=== PATIENT | male | born 2005 | race Caucasian/White ===

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

== ENCOUNTER 2024-03-06 11:37 | Outpatient (REF) | payer OTHER, MEDICAID, SELFPAY ==
[2024-03-06 14:21] LABS: MANUAL DIFF FLAG NO
[2024-03-06 14:27] LABS: Basophils Absolute Auto 0.1 X10*3/uL (0.0-0.2); Basophils Percent Auto 1.4 % (0-2); Eosinophils Absolute Auto 0.2 X10*3/uL (0.0-0.4); Eosinophils Percent Auto 4.2 % (0-4); Hematocrit 44.3 % (42.0-52.0); Hemoglobin 14.7 g/dl (14.0-18.0); Imm Gran Abs Auto 0.01 X10*3/uL (0.00-0.03); Imm Gran Pct Auto 0.2 % (0.0-0.4); Lymphocytes Absolute Auto 1.9 X10*3/uL (1.2-4.9); Lymphocytes Percent Auto 38.6 % (20-40); Mean Corpuscular HGB Conc 33.2 g/dl (31.0-36.0); Mean Corpuscular Hemoglobin 28.8 pg (27.0-33.0); Mean Corpuscular Volume 86.9 fL (80.0-98.0); Mean Platelet Volume 9.8 fL (9.4-12.4); Monocytes Absolute Auto 0.5 X10*3/uL (0.1-1.2); Monocytes Percent Auto 10.3 % (2-11); Neutrophils Absolute Auto 2.3 x10*3/uL (2.0-8.3); Neutrophils Percent Auto 45.3 % (45-73); Platelet Count 319 X10*3/uL (160-400); Red Cell Distribution Width 12.4 % (11.0-16.0)
[2024-03-06 14:39] LABS: Estimated Average Glucose 97 mg/dL
[2024-03-06 14:59] LABS: Alanine Aminotransferase 30 U/L (0-40); Albumin Level 4.5 g/dL (3.5-5.0); Alkaline Phosphatase 80 U/L (39-117); Anion Gap 11 (12-20); Aspartate Amino Transferase 21 U/L (5-37); Bilirubin Direct 0.3 mg/dL (0.0-0.5); Bilirubin Total 0.9 mg/dL (0.0-1.0); Blood Urea Nitrogen 17 mg/dL (9-16); Calcium 9.7 mg/dL (8.4-10.2); Carbon Dioxide 23 mmol/L (22-29); Chloride 110 mmol/L (96-108); Cholesterol 187 mg/dL (<200); Estimated Glomerular Filt Rate > 60; Glucose Fasting 84 mg/dL (60-99); HDL Cholesterol 37 mg/dL (>40); LDL Cholesterol Calculated 121 mg/dL (<100); Sodium 140 mmol/L (135-145); Total Protein 7.7 g/dL (6.5-8.0); Triglycerides 149 mg/dL (<150)
[2024-03-06 15:02] LABS: TSH reflex Free T4 0.85 uIU/mL (0.32-4.0)
== END 2024-03-06 11:38 | disposition home or self-care (01) ==
LOC: HO.CHCLDS 11:37
PROVIDERS: Visit Provider Pediatrics
DX: Z00.00 Encounter for general adult medical examination without abnormal findings (principal); Z13.89 Encounter for screening for other disorder; Z13.1 Encounter for screening for diabetes mellitus
CPT/HCPCS: 36415; 80048; 80061; 80076; 83036; 84443; 85025

== ENCOUNTER 2025-05-06 13:39 | Outpatient (REF) | payer OTHER, MEDICAID, SELFPAY ==
--- NOTE | ~2025-05-06 | XR_ITS ---
EXAMINATION: XR CHEST 2 VIEWS HISTORY: chest tightness and cough x 2 weeks COMPARISON: There are no prior studies available for comparison. FINDINGS: PA and lateral views of the chest are submitted. The lungs are expanded and clear. There is no pleural effusion, pneumothorax, or pulmonary vascular congestion. The heart is normal in size. The bones are intact. XR/XR chest 2V IMPRESSION: Normal examination of the chest. Electronically signed by: Gonzalo Courtney MD 05/06/2025 01:58 PM EDT
--- OUTSIDE RECORDS SUMMARY | 2025-05-06 13:20 | XMS_ITS | Encounter Summary ---
Author Organization [employer] Address [address] [place] [address] 7 [place] [address] Care Team Providers Care Dryer And Washer Mechanic Name Role Phone Tasia Espinoza MD Primary Care Provider [phone] Reason for Visit * Reason Comments Asthma Encounter Details Date Type Department Care Team ([facility] st Contact Info) Description 05/06/2025 1:20 PM EDT Office Visit [facility] [address] [id number] Mild persistent asthma with acute exacerbation (Primary Dx); Mild asthma with allergic rhinitis with acute exacerbation, unspecified whether persistent Social History Tobacco Use Types Packs/Day Years Used Date Smoking Tobacco: Never Passive Smoke Exposure: Never Smokeless Tobacco: Never Alcohol Answer Date Recorded Frequency of Alcohol Consumption Not on file 03/06/2024 Average Number of Drinks Not on file 024 Frequency of Binge Drinking Not on file 02/08 Score 0 03/06/2024 Depression Answer Date Recorded Patient Health Questionnaire-9 Score 8 03/06/2024 Patient Health Questionnaire-9 Score 8 03/06/2024 Last PHQ-9: Questionnaire Data Not on file 0 03/06/2024 Housing Stability Answer Date Recorded What is your housing situation today? I have eusebia tavarez 02/25/[address] you li ve. Do you have problems with any of the following? None of the above 02/25/2024 Food Insecurity Answer Date Recorded Within the past 12 months, y ou worried that your food would run out before you got money to buy more: Never True 02/25/2024 Within the past 12 months,th e food you bought just didn't last and you didn't have enough money to get more: Never True Transportation Answer Date Recorded In the past 12 months, has l ack of transportation kept you from medical appts, meetings, work or from getting things needed for daily living? No 02/25/2024 Utilities Answer Date Recorded In the past 12 months, has t he electric, gas, oil or water company threatened to shut off services in your home? No 02/25/2024 Depression Answer Date Recorded Patient Health Questionnaire-2 Score 0 03/06/2024 Internet Access Answer Date Recorded Internet Access Q1 Yes 05/11/2024 Internet Access Q2 Not on file 05/11/2024 Sex and Gender Information Value Date Recorded Sex Assigned at Male 07/09/2022 10:18 AM EDT Legal Sex Male 10:18 AM EDT Gender Identity Male 07/09/2022 10:18 AM EDT Sexual Orientation Choose not to disclose 2021 10:18 AM EDT documented as of this encounter Last Filed Vital Signs Vital Sign Reading Time Taken Comments Blood Pressure 139/77 05/06/2025 1:04 PM EDT Pulse 83 05/06/2025 1:04 PM EDT Temperature 36.4 C (97.6 F) 05/06/2025 1:04 PM EDT Respiratory Rate 17 05/06/2025 1:04 PM EDT Oxygen Saturation 97% 05/06/2025 1:04 PM EDT Inhaled Oxygen Concentration - - Weight 123 kg (271 lb 12.8 oz) 05/06/2025 1:04 P M EDT Height - - Body Mass Index 33.97 03/06/2024 11:10 AM EDT documented in this encounter Plan of Treatment Upcoming Encounters Date Type Department Care Team (Late st Contact Info) Description 05/19/2025 9:15 AM EDT Office Visit [facility] MED & PEDS [address] [place] [address] Tasia Espinoza MD [address] [place] [address] documented as of this encounter Procedures Procedure Name Priority Date/Time Associated Diagnosis Comments XR CHEST 2 VIEWS STAT 05/06/2025 1:04 PM EDT Mild persistent asthma with acute exacerbation documented in this encounter Results * XR Chest 2 Views (05/06/2025 1:04 PM EDT) Anatomical Region Laterality Modality Chest Radiographic Lyn ging 05/06/2025 1:04 PM EDT Narrative 05/06/2025 2:01 PM EDT [address] [address] XRay Report Signed Patient: Augie Marquez MR#: [id number] 1 : 2005 Acct:[id number] Age/Sex: 20 / M ADM Date: 05/06/25 Loc: [facility] Attending Dr: Kira Gomez DO Ordering Physician: Kira Gomez DO Date of Service: 05/06/25 Procedure(s): XR chest 2V Accession Number(s): [id number] cc: Kira Gomez DO EXAMINATION: XR CHEST 2 VIEWS HISTORY: chest tightness and cough x 2 weeks COMPARISON: There are no prior studies available for comparison. FINDINGS: PA and lateral views of the chest are submitted. The lungs are expanded and clear. There is no pleural effusion, pneumothorax, or pulmonary vascular congestion. The heart is normal in size. The bones are intact. XR/XR chest 2V IMPRESSION: Normal examination of the chest. Electronically signed by: Gonzalo Courntey MD 05/06/2025 01:58 PM EDT Dictated By: Gonzalo Courtney MD Signed By: <Electronically signed by Gonzalo Courtney MD in OV> 05/06/25 1358 DD/ 1304 TD/TT: 05/06/25 1315 Licensed Clinician: Procedure Note Donotuseinterpreter, Image - 05/06/[address] [address] XRay Report Signed Patient: Augie MarquezMR#: [id number] 1 : 2005Acct:[id number] Age/Sex: 20 / MADM Date: 05/06/25 Loc: [facility] Attending Dr: Kira Gomez DO Ordering Physician: Kira Gomez DO Date of Service: 05/06/25 Procedure(s): XR chest 2V Accession Number(s): [id number] cc: Kira Gomez DO EXAMINATION: XR CHEST 2 VIEWS HISTORY: chest tightness and cough x 2 weeks COMPARISON: There are no prior studies available for comparison. FINDINGS: PA and lateral views of the chest are submitted. The lungs are expanded and clear. There is no pleural effusion, pneumothorax, or pulmonary vascular congestion. The heart is normal in size. The bones are intact. XR/XR chest 2V IMPRESSION: Normal examination of the chest. Electronically signed by: Gonzalo Courtney MD 05/06/2025 01:58 PM EDT RP Dictated By: Gonzalo Courtney MD Signed By: <Electronically signed by Gonzalo Courtney MD in OV> 05/06/25 1358 DD/ 1304 TD/TT: 05/06/25 1315 Licensed Clinician: Kira Gomez DO IMG XR PROCEDURES Final Resu lt documented in this encounter Visit Diagnoses Diagnosis Mild persistent asthma with acute exacerbation- Primary Mild asthma with allergic rhinitis with acute exacerbation, unspecified whether persistent documented in this encounter Additional Health Concerns Assessment Noted Time PHQ-9 Depression Total Score: 8 03/06/20 24 11:13 AM EDT documented as of this encounter Care Teams Dryer And Washer Mechanic Relationship Specialty Start Date End Date Tasia Espinoza MD [address] [place] [address] PCP - General Family Medicine 09/09/18 documented as of this encounter
--- OUTSIDE RECORDS SUMMARY | 2025-05-06 14:23 | XMS_ITS | Encounter Summary ---
Author Organization [employer] Address [address] [place] [address] Care Team Providers Care Parts Cleaner Name Role Phone Tasia Espinoza MD Primary Care Provider [phone] Reason for Visit * Reason Onset Date Comments Nurse Triage 01/16/2024 Encounter Details Date Type Department Care Team ([facility] st Contact Info) Description 01/16/2024 Telephone [facility] [address] [place] [address] Tasia Espinoza MD [address] [place] [address] Nurse Triage Social History Tobacco Use Types Packs/Day Years Used Date Smoking Tobacco: Never Passive Smoke Exposure: Never Smokeless Tobacco: Never Depression Answer Date Recorded Patient Health Questionnaire-9 Score 0 12/26/2022 Housing Stability Answer Date Recorded What is your housing situation today? I have eusebia tavarez 07/04/[address] you li ve. Do you have problems with any of the following? None of the above 07/04/2023 Food Insecurity Answer Date Recorded Within the past 12 months, y ou worried that your food would run out before you got money to buy more: Never True 07/04/2023 Within the past 12 months,th e food you bought just didn't last and you didn't have enough money to get more: Never True Transportation Answer Date Recorded In the past 12 months, has l ack of transportation kept you from medical appts, meetings, work or from getting things needed for daily living? No 07/04/2023 Utilities Answer Date Recorded In the past 12 months, has t he electric, gas, oil or water company threatened to shut off services in your home? No 07/04/2023 Depression Answer Date Recorded Patient Health Questionnaire-2 Score 0 12/26/2022 Sex and Gender Information Value Date Recorded Sex Assigned at Male 07/09/2022 10:18 AM EDT Legal Sex Male 10:18 AM EDT Gender Identity Male 07/09/2022 10:18 AM EDT Sexual Orientation Choose not to disclose 2021 10:18 AM EDT documented as of this encounter Miscellaneous Notes * Telephone Encounter - Cheli Xiong RN - 01/16/2024 9:33 AM EDT Mother calling for pt. Pt. In background gave verbal consent to talk with Mother. Mother stating every year pt. Has allergies at this time and it also triggers Asthma sx. Pt. Not wheezing but has been having itchy watery eyes, itchy eyelids, slight SOB, sneezing. Mother looking for refills on allergy medications and needs refill on Inhaler. FU on allergies appt. Made for 01/27/23 at 1115am with PCP but, needs refills prior to appt. Will submit request to provider in [facility] as PCP not working today. * Telephone Encounter - Zack Edwards - 01/16/2024 9:29 AM EDT Symptom: Wheezing Outcome: Schedule an urgent appointment (within 1 hour) or talk to a nurse or provider soon Reason: Started within the past 3 days The caller accepted this outcome documented in this encounter Plan of Treatment Upcoming Encounters Date Type Department Care Team (Late st Contact Info) Description 05/19/2025 9:15 AM EDT Office Visit [facility] MED & PEDS [address] [place], [place] [phone] Tasia Espinoza MD [address] [place] [address] documented as of this encounter Visit Diagnoses Not on filedocumented in this encounter Additional Health Concerns Assessment Noted Time PHQ-9 Depression Total Score: 0 12/27/19 23 9:36 AM EDT documented as of this encounter Care Teams Parts Cleaner Relationship Specialty Start Date End Date Tasia Espinoza MD [address] [place] [address] PCP - General Family Medicine 09/09/18 documented as of this encounter
--- OUTSIDE RECORDS SUMMARY | 2025-05-06 14:23 | XMS_ITS | Encounter Summary ---
Author Organization [employer] Address [address] [place] [address] Care Team Providers Care Dock Operations Supervisor Name Role Phone Tasia Espinoza MD Primary Care Provider [phone] Reason for Visit * Reason Onset Date Comments Referral 03/18/2023 Bridge Expert Encounter Details Date Type Department Care Team ([facility] Contact Info) Description 03/18/2023 Telephone [facility] [address] [place], [place] [phone] Tasia Espinoza MD [address] [place] [address] Referral (Bridge Expert ) Social History Tobacco Use Types Packs/Day Years Used Date Smoking Tobacco: Never Passive Smoke Exposure: Never Smokeless Tobacco: Never Depression Answer Date Recorded Patient Health Questionnaire-9 Score 0 12/26/2022 Depression Answer Date Recorded Patient Health Questionnaire-2 Score 0 12/26/2022 Sex and Gender Information Value Date Recorded Sex Assigned at Male 07/09/2022 10:18 AM EDT Legal Sex Male 10:18 AM EDT Gender Identity Male 07/09/2022 10:18 AM EDT Sexual Orientation Choose not to disclose 2021 10:18 AM EDT documented as of this encounter Miscellaneous Notes * Telephone Encounter - Lisa Devries - 03/18/2023 9:14 AM EDT Tc from patient requesting status for caterpillar tractor operator referral from 12/26/22. Nurse Prn see's note from01/07/23 stating Referral was sent back from eye and Lasik they stated not seeing new pt's for routine eye exams. Provider was messaged. . documented in this encounter Plan of Treatment Upcoming Encounters Date Type Department Care Team ([facility] st Contact Info) Description 05/19/2025 9:15 AM EDT Office Visit [facility] MED & PEDS [address] [place] [address] Tasia Espinoza MD [address] [place] [address] documented as of this encounter Visit Diagnoses Not on filedocumented in this encounter Additional Health Concerns Assessment Noted Time PHQ-9 Depression Total Score: 0 12/27/19 23 9:36 AM EDT documented as of this encounter Care Teams Dock Operations Supervisor Relationship Specialty Start Date End Date Tasia Espinoza MD [address] [place] [address] PCP - General Family Medicine 09/09/18 documented as of this encounter
--- OUTSIDE RECORDS SUMMARY | 2025-05-06 14:23 | XMS_ITS | Clinical Summary ---
Author Organization [facility] Address [address] [place] [address] Phone Care Team Providers Care Regulatory Compliance Officer Name Role Phone Physician, Pcp Unknown Primary Care Provider Eladia vailable Allergies No known active allergies Medications albuterol 2.5 mg /3 mL (0.083 %) nebulizer solution Take 3 mL (2.5 mg total) by nebulization every 4 (four) hours if needed for wheezing or shortness of breath. 1 Active Social History Tobacco Use Types Packs/Day Years Used Date Smoking Tobacco: Never Assessed Sex and Gender Information Value Date Recorded Sex Assigned at Not on file Legal Sex Male 4:33 AM EST Gender Identity Not on file Sexual Orientation Not on file Obstetrics History Last Filed Vital Signs Vital Sign Reading Time Taken Comments Blood Pressure 131/111 07/15/2024 5:09 PM EST Pulse 115 07/15/2024 5:09 PM EST Temperature 37 C (98.6 F) 07/15/2024 5:09 PM EST Respiratory Rate 18 07/15/2024 5:09 PM EST Oxygen Saturation 98% 07/15/2024 5:09 PM EST Inhaled Oxygen Concentration - - Weight 113 kg (250 lb) 07/15/2024 5:09 PM EST Height 193 cm (6' 4 ) 07/15/2024 5:09 PM EST Body Mass Index 30.43 07/15/2024 5:09 PM EST Plan of Treatment Health Maintenance Due Date Last Done Comments Pneumococcal Vaccine: Pediatrics (0 to 5 Years) and At-Risk Patients (6 to 49 Years) (1 of 1 - PPSV23) 12/31/2009 03/09/2005, 2004, 2004, Additional history exists Meningococcal B Vaccine (1 of 2 - Standard) 2020 HIV Screening 08/12/2022 Hepatitis C Screening 08/12/2022 Social Influencers of Health Screening 08/12/2022 COVID-19 Vaccine (1 - 2023- season) 2024 Depression Screening 09/09/2024 DTaP,Tdap,and Td Vaccines (7 - Td or Tdap) 01/03/2025 01/03/2015, 02/26/2008, 03/09/2005, Additional history exists Annual Well Child Visit (3-21 years old) 03/06/2025 03/06/2024 Influenza Vaccine (#1) 2025 09/26/2012, 2007 Cholesterol Screening (Lipid Panel) 03/06/2029 03/06/2024 HIB Vaccines Completed 03/09/2005, 07/11, 2004, Additional history exists Hepatitis B Vaccines Completed 03/09/2005, 2004, 2004 IPV Vaccines Completed 02/26/2008, 07/11, 2004, Additional history exists MMR Vaccines Completed 02/26/2008, 03/09/2005 Varicella Vaccines Completed 02/26/2008, 03/09/2005 HPV Vaccines Completed 12/21/2016, 12/09, 08/26/2013 Hepatitis A Vaccines Completed 07/28/2019, 12/22/19 17 Meningococcal ACWY Vaccine Completed 11/08/2020, RSV Immunization Patients Under 20 months Aged Out No longer eligible based on patient's age to complete this topic Insurance [place] Care Teams Regulatory Compliance Officer Relationship Specialty Start Date End Date Physician, Pcp Unknown PCP - General 07/16/24
--- OUTSIDE RECORDS SUMMARY | 2025-05-06 14:23 | XMS_ITS | Encounter Summary ---
Author Organization [employer] Address [address] [place] [address] Care Team Providers Care Stuffed Casing Tier Name Role Phone Tasia Espinoza MD Primary Care Provider [phone] Reason for Visit * Reason Onset Date Comments Appointment Request 12/11/2022 Encounter Details Date Type Department Care Team (Late st Contact Info) Description 12/11/2022 Telephone [facility] MED & PED[facility] [address] [place] [address] Tasia Espinoza MD [address] [place] [address] Appointment Request Social History Tobacco Use Types Packs/Day Years Used Date Smoking Tobacco: Never Assessed Sex and Gender Information Value Date Recorded Sex Assigned at Male 07/09/2022 10:18 AM EDT Legal Sex Male 10:18 AM EDT Gender Identity Male 07/09/2022 10:18 AM EDT Sexual Orientation Choose not to disclose 2021 10:18 AM EDT documented as of this encounter Miscellaneous Notes * Telephone Encounter - Joshroryrozinahenny Thad Hilario - 12/11/2022 9:10 AM EDT Tc from mother requesting physical appt with provider. Stacker Driver tried booking but no available appt was found. Please contact mother at [phone] documented in this encounter Plan of Treatment Upcoming Encounters Date Type Department Care Team (Late st Contact Info) Description 05/19/2025 9:15 AM EDT Office Visit [facility] P[facility] [address] [place] [address] Tasia Espinoza MD [address] [place] [address] documented as of this encounter Visit Diagnoses Not on filedocumented in this encounter Care Teams Stuffed Casing Tier Relationship Specialty Start Date End Date Tasia Espinoza MD [address] [place] [address] PCP - General Family Medicine 09/09/18 documented as of this encounter
--- OUTSIDE RECORDS SUMMARY | 2025-05-06 14:23 | XMS_ITS | Encounter Summary ---
Author Organization [employer] Address [address] [place] [address] 7 [place] [address] Care Team Providers Care Echo Vascular Technologist Name Role Phone Tasia Espinoza MD Primary Care Provider [phone] Encounter Details Date Type Department Care Team (Latest Contact Info) Description 05/06/2025 Travel Social History Tobacco Use Types Packs/Day Years [...] t he electric, gas, oil or water [employer] threatened to shut off services in your [...] AM EDT documented as of this encounter Plan of Treatment Upcoming Encounters Date Type Department Care Team (Late st Contact Info) Description 05/19/2025 9:15 AM EDT Office Visit [facility] MED & PEDS [address] [place] [address] Tasia Espinoza MD [address] [place] [address] documented as of this encounter Visit Diagnoses Not on filedocumented in this encounter Additional Health Concerns Assessment Noted Time PHQ-9 Depression Total Score: 8 03/06/20 24 11:13 AM EDT documented as of this encounter Care Teams Echo Vascular Technologist Relationship Specialty Start Date End Date Tasia Espinoza MD [address] [place] [address] PCP - General Family Medicine 09/09/18 documented as of this encounter
--- OUTSIDE RECORDS SUMMARY | 2025-05-06 14:23 | XMS_ITS | Encounter Summary ---
Author Organization [employer] Address [address] [place] [address] Care Team Providers Care Monument Installer Name Role Phone Tasia Espinoza MD Primary Care Provider [phone] Reason for Visit * Reason Onset Date Comments Reschedule 05/30/2023 Encounter Details Date Type Department Care Team ([facility] Contact Info) Description 05/30/2023 Telephone [facility] [address] [place] [address] Tasia Espinoza MD [address] [place] [address] Reschedule Social History Tobacco Use Types Packs/Day Years [...] encounter Miscellaneous Notes * Telephone Encounter - Georgia Mccauley RN - 05/31/2023 11:43 AM EDT Call to pt. Verified name and and gave verbal consent to speak with mom. Mom requesting to reschedule missed HDF with PCP only. Agrees to visit on 06/13/23 @10:30am. * Telephone Encounter - Nickie Mccauley - 05/30/2023 10:44 AM EDT Tc from mom requestign to r/s 05/22 HDF appointment. Please contact mom at [phone] documented in this encounter Plan of Treatment Upcoming Encounters Date Type Department Care Team ([facility] st Contact Info) Description 05/19/2025 9:15 AM EDT Office Visit [facility] MED & PEDS [address] [place] [address] Tasia Espinoza MD [address] [place] [address] documented as of this encounter Visit Diagnoses Not on filedocumented in this encounter Additional Health Concerns Assessment Noted Time PHQ-9 Depression Total Score: 0 12/27/19 23 9:36 AM EDT documented as of this encounter Care Teams Monument Installer Relationship Specialty Start Date End Date Tasia Espinoza MD [address] [place] [address] PCP - General Family Medicine 09/09/18 documented as of this encounter
--- OUTSIDE RECORDS SUMMARY | 2025-05-06 14:23 | XMS_ITS | Clinical Summary ---
Author Organization 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 10 mL 11 12/27/19 23 Active azelastine (Astelin) 0.1 % nasal spray Administer 1 spray into each nostril 2 times daily. Use in each nostril as directed 30 mL 12 01/20/20 24 Active montelukast (Singulair) 10 MG tabletIndicati ons:Mild asthma with allergic rhinitis with acute exacerbation, unspecified whether persistent TAKE 1 TABLET(10 MG) BY MOUTH DAILY 30 tablet 04/01/20 25 Active predniSONE (Deltasone) 20 MG tablet Take 3 tablets (60 mg) by mouth Once per day for 5 days. 15 tablet 05/06/20 25 2024 Active Advair Diskus 250-50 MCG/ACT aerosol powderIndicati ons:Mild asthma with allergic rhinitis with acute exacerbation, unspecified whether persistent Inhale 1 puff 2 times daily. Rinse mouth and throat after use 60 each 3 05/06/20 25 Active albuterol (2.5 MG/3ML) 0.083% nebulizer solutionIndica tions:Mild asthma with allergic rhinitis with acute exacerbation, unspecified whether persistent Take 3 mL (2.5 mg) by nebulization every 8 (eight) hours if needed for wheezing. 75 mL 2 05/06/20 25 Active albuterol (ProAir HFA) 108 (90 Base) MCG/ACT inhalerIndicat ions:Mild asthma with allergic rhinitis with acute exacerbation, unspecified whether persistent Inhale 2 puffs every 6 (six) hours if needed for wheezing. 18 g 2 05/06/20 25 Active loratadine (Claritin) 10 MG tablet 1 tablet by oral route daily 90 tablet 3 05/06/20 25 Active fluticasone (Flonase) 50 MCG/ACT nasal spray Administer 2 sprays into each nostril Once per day. Shake gently. Before first use, prime pump. After use, clean tip and replace cap. 16 g 3 05/06/20 25 2025 Active loratadine (Claritin) 10 MG tablet 1 tablet by oral route daily 90 tablet 3 01/20/20 24 2024 Discontinued(R eorder (will not trigger notification to Pharmacy)) albuterol (2.5 MG/3ML) 0.083% nebulizer solutionIndica tions:Mild asthma with allergic rhinitis with acute exacerbation, unspecified whether persistent Take 3 mL (2.5 mg) by nebulization every 8 (eight) hours if needed for wheezing. 75 mL 3 12/23/19 25 2024 Discontinued(R eorder (will not trigger notification to Pharmacy)) Advair Diskus 250-50 MCG/ACT aerosol powderIndicati ons:Mild asthma with allergic rhinitis with acute exacerbation, unspecified whether persistent Inhale 1 puff 2 times daily. Rinse mouth and throat after use 60 each 3 12/23/19 25 2024 Discontinued(R eorder (will not trigger notification to Pharmacy)) albuterol (ProAir HFA) 108 (90 Base) MCG/ACT inhalerIndicat ions:Mild asthma with allergic rhinitis with acute exacerbation, unspecified whether persistent Inhale 2 puffs every 6 (six) hours if needed for wheezing. 18 g 2 12/23/19 25 2024 Discontinued(R eorder (will not trigger notification to Pharmacy)) Active Problems Problem Noted Date Diagnosed Date Acute bilateral low back pain 02/08/2023 Assessment & Plan (02/08/2023 3:42 PM EDT): Apply heat on affected area Patient reports he was already refer to PT XRAY ordered today Neck pain 02/08/2023 Assessment & Plan (02/08/2023 3:43 PM EDT): Apply heat on affected area Patient already refer to PT Ibuprofen PRN Flexeril 5mg Q 8hrs patient aware of side effect somnolence Post-traumatic headache 02/08/2023 Assessment & Plan (02/08/2023 3:43 PM EDT): Ibuprofen PRN Maintain hydration F/u with PCP Abnormal liver function tests 12/26/2022 Seasonal allergic rhinitis 12/26/2022 Mild persistent allergic asthma 06/30/2020 Morbid obesity 06/13/2020 Encounters Date Type Department Care Team Description 05/06/2025 1:20 PM EDT Office Visit [facility] [address] [address] Mild persistent asthma with acute exacerbation (Primary Dx); Mild asthma with allergic rhinitis with acute exacerbation, unspecified whether persistent 05/06/2025 Travel 04/01/2025 Refill [facility] [address] [address] Name, MD Rakesh Mild asthma with allergic rhinitis with acute exacerbation, unspecified whether persistent 03/05/2025 Telephone [facility] [address] [place] [phone] Tasia Espinoza MD 03/03/2025 Telephone [facility] [address] [place] [address] [phone] Tasia Espinoza MD from Last 3 Months Immunizations Immunization Administration Dates Next Due DTaP, 5 pertussis antigens 02/26/2008,,2004,05/19,2004 HPV 9-Valent 12/21/2016 HPV, Quadrivalent 01/03/2015,08/26/2013 Hep A, ped/adol, 2 dose 07/28/2019,12/21/2016 Hep B, Adolescent or Pediatric 03/09/2005,2004,2004 Hib (HbOC) 03/09/2005, 4,2004,03/17 IPV 02/26/2008, 4,2004,03/17 Influenza, IIV3, injectable 08/26/2008 Influenza, Split (incl. fortunato fied surface antigen) 09/26/2012 MMR 02/26/2008,03/09/2005 Meningococcal MCV4P [id number]-135 11/08/2020,01/04/20 15 Pneumococcal Conjugate PCV 7 03/09/2005, 2004,2004,03/17 Tdap 01/03/2015 Varicella 02/26/2008,03/09/2005 Social History Tobacco Use Types Packs/Day Years Used Date Smoking Tobacco: Never Passive Smoke Exposure: Never Smokeless Tobacco: Never Tobacco Cessation:Counseling Given: Not Answered Alcohol Answer Date Recorded Frequency of Alcohol [...] not to disclose 2021 10:18 AM EDT Last Filed Vital Signs Vital Sign Reading [...] oz) 05/06/2025 1:04 P M EDT Height 190.5 cm (6' 3 ) 03/06/2024 11:10 AM EDT Body Mass Index 33.97 03/06/2024 11:10 AM EDT Plan of Treatment Upcoming Encounters Date Type Department Care Team (Late st Contact Info) Description 05/19/2025 9:15 AM EDT Office Visit [facility] [address] [place] [address] Tasia Espinoza MD [address] [place] [address] Health Maintenance Due Date Last Done Comments Chlamydia and Gonorrhea Screening 2004 HIV Screening 2004 Disability Screening 2004 Alcohol/Substance Use Screening 2016 Family Planning (PISQ) 12/31/2018 Meningococcal B Vaccine (1 of 2 - Standard) 2020 Hepatitis C Screening 12/31/2021 Pneumococcal Vaccine: Pediatrics (0 to 5 Years) and At-Risk Patients (6 to 49) Years (1 of 2 - PCV) 12/31/2022 03/09/2005, 2004, 2004, Additional history exists COVID-19 Vaccine ( - season) 2024 DTaP/Tdap/Td Vaccines (7 - Td or Tdap) 01/03/2025 01/03/2015, 02/26/2008, 03/09/2005, Additional history exists SDOH Screening 02/24/2025 02/25/2024 Depression Screening 03/06/2025 03/06/2024, 03/06/20 Influenza Vaccine (#1) 2025 09/26/2012, 2007 Tobacco Screening 07/16/2025 07/16/2024 Lipid Panel 03/06/2029 03/06/2024, 0309/2021, 06/09/2020 Zoster Vaccines (1 of 2) 12/31/2053 RSV Patients and Patients Aged 60 years or older (1 - 1-dose 75+ series) 12/31/2078 HIB Vaccines Completed 03/09/2005, 07/11, 2004, Additional history exists Hepatitis B Vaccines Completed 03/09/2005, 2004, 2004 IPV Vaccines Completed 02/26/2008, 07/11, 2004, Additional history exists HPV Vaccines Completed 12/21/2016, 12/09, 08/26/2013 Hepatitis A Vaccines Completed 07/28/2019, 12/22/19 17 Meningococcal Vaccine Completed 11/08/2020, 015 RSV under 20 months Aged Out No longe r eligible based on patient's age to complete this topic Rotavirus Vaccines Aged Out No longer eligible based on patient's age to complete this topic Procedures Procedure Name Priority Date/Time Associated Diagnosis Comments XR CHEST 2 VIEWS STAT 05/06/2025 1:04 PM EDT Mild persistent asthma with acute exacerbation LIPID PANEL, STANDARD Routine 03/06/2024 11:38 AM EDT Routine adult health maintenance from Last 3 Months or Most Recently Relevant to Health Maintenance Results * XR Chest 2 Views (05/06/2025 1:04 PM EDT) Anatomical Region Laterality Modality Chest Radiographic Lyn ging 05/06/2025 1:04 PM EDT Narrative 05/06/2025 2:01 PM EDT [address] [address] XRay Report Signed Patient: Augie Marquez MR#: [id number] 1 : 2005 Acct:[id number] Age/Sex: 20 / M ADM Date: 05/06/25 Loc: [facility] Attending Dr: Kira Gomez DO Ordering Physician: Kira Gomez DO Date of Service: 05/06/25 Procedure(s): XR chest 2V Accession Number(s): [id number] cc: Kira Gomez DO EXAMINATION: XR CHEST [...] 05/06/25 1358 DD/ 1304 TD/TT: 05/06/25 1315 Collections Clerk: Procedure Note Donotuseinterpreter, Image - 05/06/[address] [address] XRay Report Signed Patient: Augie MarquezMR#: [id number] 1 : 2005Acct:[id number] Age/Sex: 20 / MADM Date: 05/06/25 Loc: CX Attending Dr: Kira Gomez DO Ordering Physician: Kira Gomez DO Date of Service: 05/06/25 Procedure(s): XR chest 2V Accession Number(s): [id number] cc: Kira Gomez DO EXAMINATION: XR CHEST [...] 05/06/25 1358 DD/ 1304 TD/TT: 05/06/25 1315 Collections Clerk: Kira Gomez DO IMG XR PROCEDURES Final Resu lt * (ABNORMAL) Lipid Panel, Standard (03/06/2024 11:38 AM EDT) Triglycerides 149 <150 mg/dL [facility] Comment:Desirable Triglyceri de: less than 150 mg/dLBorderline High Triglyceride 150-199 mg/dLHigh Triglyceride: 200-499 mg/dLVery High Triglyceride: greater than or equal to 5OO mg/dL Cholesterol 187 <200 mg/dL [facility] Comment:Desirable Cholestero l: less than 200 mg/dLBorderline High Cholesterol: 200-239 mg/dLHigh Cholesterol: greater than 239 mg/dL LDL Cholesterol Calculated 121(H) <100 mg/dL [facility] Comment:Desirable LDL: less than 100 mg/dLNear Optimal/Above Optimal LDL: 110- 129 mg/dLBorderline High LDL: 130-159 mg/dLHigh LDL: 160-189 mg/dLVery High LDL: greater than or equal to 190 mg/dL HDL Cholesterol 37(L) >40 mg/dL [facility] Comment:Desirable HDL: great er than 40 mg/dL Note: This HDL assay may give artificially low results in patients with liver disease. Blood Venous blood specimen / Unknown 03/06/2024 11:38 AM EDT 03/06/2024 2:15 PM EDT Tasia Espinoza MD LAB BLOOD ORDERABLES Final Re sult [facility] [address] [place] [address] [phone] from Last 3 Months or Most Recently Relevant to Health Maintenance Insurance [address] [place], [place] [address] [facility] Care Teams Steel Engraver Relationship Specialty Start Date End Date Tasia Espinoza MD [address] [place] [phone] PCP - General Family Medicine 09/09/18
== END 2025-05-06 13:40 | disposition home or self-care (01) ==
LOC: HO.HHCX 13:39
PROVIDERS: Visit Provider Family Medicine
DX: J45.31 Mild persistent asthma with (acute) exacerbation (principal)
CPT/HCPCS: 71046

== ENCOUNTER → 2025-05-06 13:40 | Outpatient (BNV) | payer OTHER, MEDICAID, SELFPAY | PROVIDERS: Visit Provider Radiology Diagnostic Radiology | DX: R07.89 Other chest pain (principal); R05.9 Cough, unspecified | CPT/HCPCS: 71046 ==

== ENCOUNTER 2025-07-28 11:09 | Outpatient (REF) | payer OTHER, MEDICAID, SELFPAY ==
--- OUTSIDE RECORDS SUMMARY | 2025-07-28 10:30 | XMS_ITS | Encounter Summary ---
Author Organization [employer] Address [address] [place] [address] 7 [place] [address] Care Team Providers Care Ocean Forwarder Name Role Phone Tasia Espinoza MD Primary Care Provider [phone] Encounter Details Date Type Department Care Team ([facility] st Contact Info) Description 07/28/2025 10:30 AM EST Office Visit [facility] P[facility] [address] [place], [place] [phone] Tasia Espinoza MD [address] [place], [place] [phone] Encounter for immunization (Primary Dx); Preop examination; Dietary counseling; Exercise counseling; Routine adult health maintenance; Mild asthma with allergic rhinitis with acute exacerbation, unspecified whether persistent; Seasonal allergic rhinitis, unspecified trigger; Morbid obesity (CMS/HCC) (HCC) Social History Tobacco Use Types Packs/Day Years [...] Sign Reading Time Taken Comments Blood Pressure 112/70 07/28/2025 10:37 AM EST Pulse 80 07/28/2025 10:37 AM EST Temperature 36.3 C (97.4 F) 07/28/2025 10:37 AM EST Respiratory Rate 20 07/28/2025 10:37 AM EST Oxygen Saturation - - Inhaled Oxygen Concentration - - Weight 127 kg (281 lb) 07/28/2025 10:37 AM EST Height 190.8 cm (6' 3.13 ) 07/28/2025 10:[address] Body Mass Index 35 07/28/2025 10:37 AM EST documented in this encounter Progress Notes * Tasia Espinoza MD - 07/28/2025 10:30 AM EST Subjective Patient ID: Augie Marquez is a 20 y.o. male who presents for preop/PE visit. Augie Marquez, age 20 years Cataract and Vision Impairment History of blunt trauma to the left eye with subsequent decreased vision. Uses glasses but primarily relies on the right eye for vision. Scheduled for cataract surgery on August 19, 2025. Reports that the eye doctor expects vision to improve and even out with the right eye after surgery, but not fully recover. Denies current pain. Asthma History of asthma, reports good control and no recent asthma attacks. Weight and Sugar Intake Reports significant weight loss. Consumes multiple cans of Gianna juice daily, sometimes up to three per day, and 0 sugar soda. Has a long history of high sugar intake. Family history of diabetes. Acne Reports persistent pimples. Has used topical products without improvement. Cannabis Use Reports almost daily marijuana use to help with sleep. Obtains marijuana from a dispensary through a friend. Dental Care Last dental visit was eight months ago. Denies current dental pain. Mood Reports good mood. Denies depression. Review of Systems Constitutional: Negative for activity change, chills, fever and unexpected weight change. Eyes: Positive for visual disturbance. Respiratory: Negative for cough, shortness of breath and wheezing. Cardiovascular: Negative for chest pain, palpitations and leg swelling. Gastrointestinal: Negative for abdominal pain and blood in stool. Endocrine: Negative for polydipsia and polyuria. Genitourinary: Negative for decreased urine volume, difficulty urinating, dysuria and hematuria. Musculoskeletal: Negative for arthralgias and gait problem. Skin: Negative for color change and rash. Neurological: Negative for dizziness and headaches. Hematological: Negative for adenopathy. Psychiatric/Behavioral: Negative for dysphoric mood, hallucinations, sleep disturbance and suicidalideas. The patient is not nervous/anxious. Objective BP 112/70 (BP Location: Left arm, Patient Position: Sitting, BP Cuff Size: Adult) Pulse80 Temp 97.4 ??F (36.3 ??C) (Oral) Resp 20 Ht 6' 3.13 (1.908 m) Wt 281 lb (127 kg) BMI 35.00 kg/m?? Physical Exam Vitals reviewed. Constitutional: General: He is not in acute distress. Appearance: He is obese. HENT: Head: Normocephalic. Right Ear: Tympanic membrane and ear canal normal. Left Ear: Tympanic membrane and ear canal normal. Nose: Nose normal. No congestion. Mouth/Throat: Mouth: Mucous membranes are moist. Pharynx: Oropharynx is clear. Eyes: Extraocular Movements: Extraocular movements intact. Conjunctiva/sclera: Conjunctivae normal. Pupils: Pupils are equal, round, and reactive to light. Cardiovascular: Rate and Rhythm: Normal rate and regular rhythm. Heart sounds: Normal heart sounds. No murmur heard. Pulmonary: Effort: Pulmonary effort is normal. No respiratory distress. Breath sounds: Normal breath sounds. No wheezing or rales. Abdominal: General: Bowel sounds are normal. There is distension. Palpations: Abdomen is soft. There is no mass. Tenderness: There is no abdominal tenderness. There is no guarding. Hernia: No hernia is present. Musculoskeletal: General: Normal range of motion. Cervical back: Normal range of motion. Right lower leg: No edema. Left lower leg: No edema. Skin: Capillary Refill: Capillary refill takes less than 2 seconds. Findings: No rash. Neurological: Mental Status: He is oriented to person, place, and time. Mental status is at baseline. Gait: Gait normal. Deep Tendon Reflexes: Reflexes normal. Psychiatric: Mood and Affect: Mood normal. Behavior: Behavior normal. Thought Content: Thought content normal. Judgment: Judgment normal. Assessment/Plan Diagnoses and all orders for this visit: Dietary counseling: - Excessive intake of sugar-sweetened beverages, specifically Gianna drinks, with daily consumption of 2-3 cans containing 35-51 grams of sugar each. - Recommended reduction of Gianna drink consumption to one can per day. Discussed risks of high sugar intake and encouraged consideration of lower sugar alternatives. Exercise counseling: - Physical activity associated with work and recreational basketball. Encounter for immunization: - Due for tetanus vaccination; last dose was 10 years ago. - Ordered tetanus vaccine. Preop examination: - Scheduled for cataract surgery on August 19, 2025. Preoperative evaluation required. - Will check blood work as part of preoperative assessment. Discussed expected improvement in vision post-surgery. Routine adult health maintenance: - Routine health maintenance addressed, including dental care, mood, and social activity. - Ordered blood work for general health screening. Provided work excuse note for July 28, 2025. Acne: - Acne present, current topical treatments ineffective. - Offered prescription for acne medication. Substance use (cannabis): - Daily cannabis use for relaxation and sleep. - Advised to ensure cannabis is obtained from a clean, reputable source to avoid contamination. Screening for sexually transmitted infections: - Sexually active, risk of sexually transmitted infections discussed. - Ordered urinalysis for gonorrhea and chlamydia. Advised use of condoms. Will notify if results are positive. Encounter for immunization - Basic Metabolic Panel, Fasting; Future - CBC auto differential; Future - Hepatic Function Panel; Future - Hemoglobin A1c; Future - TSH W/Reflex to FT4; Future - Lipid Panel, Standard; Future - HIV-1/2 Antigen and Antibodies, Fourth Generation, with Reflexes; Future - Hepatitis C Antibody with Reflex to HCV, RNA, Quantitative, Real-Time PCR; Future - Chlamydia/N. Gonorrhoeae, PCR, Urine - TDAP VACCINE 7 yrs + Preop examination Comments: Augie is cleared for his low risk opthalmological cataract surgery scheduled next month.Note will be sent to opthal office. Orders: - Basic Metabolic Panel, Fasting; Future - CBC auto differential; Future - Hepatic Function Panel; Future - Hemoglobin A1c; Future - TSH W/Reflex to FT4; Future - Lipid Panel, Standard; Future - HIV-1/2 Antigen and Antibodies, Fourth Generation, with Reflexes; Future - Hepatitis C Antibody with Reflex to HCV, RNA, Quantitative, Real-Time PCR; Future - Chlamydia/N. Gonorrhoeae, PCR, Urine Dietary counseling - Basic Metabolic Panel, Fasting; Future - CBC auto differential; Future - Hepatic Function Panel; Future - Hemoglobin A1c; Future - TSH W/Reflex to FT4; Future - Lipid Panel, Standard; Future - HIV-1/2 Antigen and Antibodies, Fourth Generation, with Reflexes; Future - Hepatitis C Antibody with Reflex to HCV, RNA, Quantitative, Real-Time PCR; Future - Chlamydia/N. Gonorrhoeae, PCR, Urine Exercise counseling - Basic Metabolic Panel, Fasting; Future - CBC auto differential; Future - Hepatic Function Panel; Future - Hemoglobin A1c; Future - TSH W/Reflex to FT4; Future - Lipid Panel, Standard; Future - HIV-1/2 Antigen and Antibodies, Fourth Generation, with Reflexes; Future - Hepatitis C Antibody with Reflex to HCV, RNA, Quantitative, Real-Time PCR; Future - Chlamydia/N. Gonorrhoeae, PCR, Urine Routine adult health maintenance Comments: PE done, IZs Updated today. Declines flu,recieved TD booster. Fasting labs ordered. STI screening tests done, condom use reinforced. Orders: - Basic Metabolic Panel, Fasting; Future - CBC auto differential; Future - Hepatic Function Panel; Future - Hemoglobin A1c; Future - TSH W/Reflex to FT4; Future - Lipid Panel, Standard; Future - HIV-1/2 Antigen and Antibodies, Fourth Generation, with Reflexes; Future - Hepatitis C Antibody with Reflex to HCV, RNA, Quantitative, Real-Time PCR; Future - Chlamydia/N. Gonorrhoeae, PCR, Urine Mild asthma with allergic rhinitis with acute exacerbation, unspecified whether persistent Comments: . Orders: - Advair Diskus 250-50 MCG/ACT aerosol powder ; Inhale 1 puff 2 times daily. Rinse mouth and throatafter use Seasonal allergic rhinitis, unspecified trigger Morbid obesity (CMS/HCC) (HCC) Other orders - fluticasone (Flonase) 50 MCG/ACT nasal spray; Administer 2 sprays into each nostril Once per day.Shake gently. Before first use, prime pump. After use, clean tip and replace cap. documented in this encounter Plan of Treatment Scheduled Orders Name Type Priority Associated Diagnoses Orde r Schedule HIV-1/2 Antigen and Antibodies, Fourth Generation, with Reflexes Lab Routine Dietary counseling Exercise counseling Encounter for immunization Preop examination Routine adult health maintenance Expected: 07/28/2025 (Approximate), Expires: 07/28/2026 Hepatitis C Antibody with Reflex to HCV, RNA, Quantitative, Real-Time PCR Lab Routine Dietary counseling Exercise counseling Encounter for immunization Preop examination Routine adult health maintenance Expected: 07/28/2025, Expires: 07/28/2026 documented as of this encounter Procedures Procedure Name Priority Date/Time Associated Diagnosis Comments BASIC METABOLIC PANEL, FASTING Routine 07/28/2025 11:12 AM EST Dietary counseling Exercise counseling Encounter for immunization Preop examination Routine adult health maintenance TSH W/REFLEX TO FT4 Routine 07/28/2025 1 1:12 AM EST Dietary counseling Exercise counseling Encounter for immunization Preop examination Routine adult health maintenance CBC WITH AUTO DIFFERENTIAL Routine 07/28/2025 11:12 AM EST Dietary counseling Exercise counseling Encounter for immunization Preop examination Routine adult health maintenance HEMOGLOBIN A1C Routine 07/28/2025 11:12 AM EST Dietary counseling Exercise counseling Encounter for immunization Preop examination Routine adult health maintenance HEPATIC FUNCTION PANEL Routine 07/28/2025 11:12 AM EST Dietary counseling Exercise counseling Encounter for immunization Preop examination Routine adult health maintenance LIPID PANEL, STANDARD Routine 07/28/2025 11:12 AM EST Dietary counseling Exercise counseling Encounter for immunization Preop examination Routine adult health maintenance CHLAMYDIA/TRICHOMONAS /NEISSERIA GONORRHOEAE, PCR, URINE Routine 07/28/2025 10:58 AM EST Dietary counseling Exercise counseling Encounter for immunization Preop examination Routine adult health maintenance documented in this encounter Results * (ABNORMAL) Lipid Panel, Standard (07/28/2025 11:12 AM EST) Triglycerides 117 <150 mg/dL [facility] Comment:Desirable Triglyceri de: less than 150 mg/dLBorderline High Triglyceride 150-199 mg/dLHigh Triglyceride: 200-499 mg/dLVery High Triglyceride: greater than or equal to 5OO mg/dL Cholesterol 182 <200 mg/dL [facility] Comment:Desirable Cholestero l: less than 200 mg/dLBorderline High Cholesterol: 200-239 mg/dLHigh Cholesterol: greater than 239 mg/dL LDL Cholesterol Calculated 114(H) <100 mg/dL [facility] Comment:Desirable LDL: less than 100 mg/dLNear Optimal/Above Optimal LDL: 110- 129 mg/dLBorderline High LDL: 130-159 mg/dLHigh LDL: 160-189 mg/dLVery High LDL: greater than or equal to 190 mg/dL HDL Cholesterol 45 >40 mg/dL [facility] Comment:Desirable HDL: great er than 40 mg/dL Note: This HDL assay may give artificially low results in patients with liver disease. Blood Venous blood specimen / Unknown 07/28/2025 11:12 AM EST 07/28/2025 2:06 PM EST us Tasia Espinoza MD LAB BLOOD ORDERABLES Final Re sult [facility] [address] [place] [phone] * TSH W/Reflex to FT4 (07/28/2025 11:12 AM EST) TSH reflex Free T4 1.24 0.32 - 4.0 uIU/mL [facility] Blood Venous blood specimen / Unknown 07/28/2025 11:12 AM EST 07/28/2025 2:06 PM EST Tasia Espinoza MD LAB BLOOD ORDERABLES Final Re sult Performing Organization Address City/[facility]/ZIP Co de Phone Number [facility] [address] [place] [phone] * Hemoglobin A1c (07/28/2025 11:12 AM EST) Hemoglobin A1c 5.0 <6.0 % [facility] Comment:Hemoglobin A1C Refer ence Range Adults: 4.8 - 6.0 % Non diabetic: < 6.0 % Goal: < 7.0 %Additional Action Suggested: > 8.0 %Note: Hemoglobin A1c results are invalid for patients with abnormal amounts of HbF. Blood transfusions may impact the HbA1c concentration in the patient sample. Estimated Average Glucose 97 mg/dL [facility] Comment:eAG = Estimated ave rage glucose which is %A1C expressed asaverage glucose, using the formula of the W1T-VuuqfipClplkue Glucose study (ADAG), Diabetes Care, Vol.31,#8,Apr. 2007 Blood Venous blood specimen / Unknown 07/28/2025 11:12 AM EST 07/28/2025 2:06 PM EST us Tasia Espnioza MD LAB BLOOD ORDERABLES Final Re sult Performing Organization Address City/[facility]/ZIP Co de Phone Number [facility] [address] [place] [phone] * (ABNORMAL) Hepatic Function Panel (07/28/2025 11:12 AM EST) Bilirubin, Total 0.6 0.0 - 1.0 mg/dL [facility] Bilirubin, Direct 0.2 0.0 - 0.5 mg/dL [facility] Aspartate Amino Transferase 41(H) 5 - 37 U/L [facility] Alanine Aminotransferase 37 0 - 40 U/L [facility] Total Protein 8.1(H) 6.5 - 8.0 g/dL [facility] Albumin Level 5.2(H) 3.5 - 5.0 g/dL [facility] Alkaline Phosphatase 68 39 - 117 U/L [facility] Blood Venous blood specimen / Unknown 07/28/2025 11:12 AM EST 07/28/2025 2:06 PM EST us Tasia Espinoza MD LAB BLOOD ORDERABLES Final Re sult [facility] [address] [place] [phone] * (ABNORMAL) CBC auto differential (07/28/2025 11:12 AM EST) White Blood Count 6.0 4.8 - 10.8 X10*3/uL [facility] Red Blood Count 5.45 4.60 - 5.80 X10*6/uL [facility] Hemoglobin 15.7 14.0 - 18.0 g/dl [facility] Hematocrit 47.6 42.0 - 52.0 % [facility] Mean Corpuscular Volume 87.3 80.0 - 98.0 fL [facility] Mean Corpuscular Hemoglobin 28.8 27.0 - 33.0 pg [facility] Mean Corpuscular HGB Conc 33.0 31.0 - 36.0 g/dl [facility] Red Cell Distribution Width 12.3 11.0 - 16.0 % [facility] Platelet Count 360 160 - 400 X10*3/uL [facility] Mean Platelet Volume 9.8 9.4 - 12.4 fL [facility] Neutrophils Percent Auto 49.0 45 - 73 % [facility] Imm Gran Pct Auto 0.7(H) 0.0 - 0.4 % [facility] Lymphocytes Percent Auto 37.8 20 - 40 % [facility] Monocytes Percent Auto 7.9 2 - 11 % [facility] Eosinophils Percent Auto 3.3 0 - 4 % [facility] Basophils Percent Auto 1.3 0 - 2 % [facility] NRBC Pct Auto 0.0 0.0 - 0.2 /100WBC [facility] Neutrophils Absolute Auto 2.9 2.0 - 8.3 x10*3/uL [facility] Imm Gran Abs Auto 0.04(H) 0.00 - 0.03 X10*3/uL [facility] Lymphocytes Absolute Auto 2.3 1.2 - 4.9 X10*3/uL [facility] Monocytes Absolute Auto 0.5 0.1 - 1.2 X10*3/uL [facility] Eosinophils Absolute Auto 0.2 0.0 - 0.4 X10*3/uL [facility] Basophils Absolute Auto 0.1 0.0 - 0.2 X10*3/uL [facility] NRBC Abs Auto 0.000 0.0 - 0.012 X10*3/uL [facility] Blood Venous blood specimen / Unknown 07/28/2025 11:12 AM EST 07/28/2025 2:06 PM EST us Tasia Espinoza MD LAB BLOOD ORDERABLES Final Re sult [facility] [address] [place] [phone] * (ABNORMAL) Basic Metabolic Panel, Fasting (07/28/2025 11:12 AM EST) Sodium 138 135 - 145 mmol/L [facility] Potassium 4.2 3.3 - 5.1 mmol/L [facility] Chloride 107 96 - 108 mmol/L [facility] Carbon Dioxide 25 22 - 29 mmol/L [facility] Anion Gap 10(L) 12 - 20 [facility] Urea Nitrogen (BUN) 16 9 - 16 mg/dL [facility] Creatinine, Serum 0.97 0.5 - 1.4 mg/dL [facility] Estimated Glomerular Filt Rate >60 [facility] Comment:Chronic Kidney Disea se: Estimated GFR < 60 mL/min/[id number] Kidney Disease: Estimated GFR < 15 mL/min/1.73m2 Glucose Fasting 84 60 - 99 mg/dL [facility] Calcium 10.0 8.4 - 10.2 mg/dL [facility] Blood Venous blood specimen / Unknown 07/28/2025 11:12 AM EST 07/28/2025 2:06 PM EST us Tasia Espinoza MD LAB BLOOD ORDERABLES Final Re sult [facility] [address] [place] [phone] * Chlamydia/N. Gonorrhoeae, PCR, Urine (07/28/2025 10:58 AM EST) CT PCR, Urine NOT DETECTED Not Detect. [facility] Comment:A not detected test result does not exclude the possibilityof infection because test results can be affected byimproper specimen collection, concurrent antibiotic therapy,or the number of organisms in the specimen which may bebelow the sensitivity of the test. As with many diagnostictests, results from the Xpert CT/NG assay should beinterpreted in conjunction with other laboratory andclinical data available to the clinician.The Xpert CT/NG assay should not be used for the evaluationof suspected sexual abuse or for other medico-legalindications. Additional testing is recommended in anycircumstance when false positive or false negative resultscould lead to adverse medical, social or psychologicalconsequences. NG PCR, Urine NOT DETECTED Not Detect. [facility] Comment:A not detected test result does not exclude the possibilityof infection because test results can be affected byimproper specimen collection, concurrent antibiotic therapy,or the number of organisms in the specimen which may bebelow the sensitivity of the test. As with many diagnostictests, results from the Xpert CT/NG assay should beinterpreted in conjunction with other laboratory andclinical data available to the clinician.The Xpert CT/NG assay should not be used for the evaluationof suspected sexual abuse or for other medico-legalindications. Additional testing is recommended in anycircumstance when false positive or false negative resultscould lead to adverse medical, social or psychologicalconsequences. Urine (Urine, Random) 07/28/2025 10:58 AM EST 07/28/2025 2:05 PM EST us Tasia Espinoza MD LAB URINE ORDERABLES Final Re sult [facility] [address] [place] [phone] documented in this encounter Visit Diagnoses Diagnosis Encounter for immunization- Primary Preop examination Unspecified pre-operative examination Dietary counseling Dietary surveillance and counseling Exercise counseling Routine adult health maintenance Mild asthma with allergic rhinitis with acute exacerbation, unspecified whether persistent Seasonal allergic rhinitis, unspecified trigger Morbid obesity (CMS/HCC) (HCC) Morbid obesity documented in this encounter Additional Health Concerns Assessment Noted Time PHQ-9 Depression Total Score: 8 03/06/20 24 11:13 AM EDT documented as of this encounter Care Teams Ocean Forwarder Relationship Specialty Start Date End Date Tasia Espinoza MD [address] [place] [address] PCP - General Family Medicine 09/09/18 documented as of this encounter
[2025-07-28 14:11] LABS: MANUAL DIFF FLAG NO
[2025-07-28 14:15] LABS: Hematocrit 47.6 % (42.0-52.0); Hemoglobin 15.7 g/dl (14.0-18.0); Imm Gran Abs Auto 0.04 X10*3/uL (0.00-0.03); Imm Gran Pct Auto 0.7 % (0.0-0.4); Lymphocytes Absolute Auto 2.3 X10*3/uL (1.2-4.9); Mean Corpuscular HGB Conc 33.0 g/dl (31.0-36.0); Mean Corpuscular Hemoglobin 28.8 pg (27.0-33.0); Mean Corpuscular Volume 87.3 fL (80.0-98.0); NRBC Abs Auto 0.000 X10*3/uL (0.0-0.012); NRBC Pct Auto 0.0 /100WBC (0.0-0.2); Platelet Count 360 X10*3/uL (160-400); Red Blood Count 5.45 X10*6/uL (4.60-5.80); White Blood Count 6.0 X10*3/uL (4.8-10.8)
[2025-07-28 15:37] LABS: CT PCR Urine NOT DETECTED (Not Detect.); NG PCR Urine NOT DETECTED (Not Detect.)
[2025-07-28 16:24] LABS: Alanine Aminotransferase 37 U/L (0-40); Albumin Level 5.2 g/dL (3.5-5.0); Alkaline Phosphatase 68 U/L (39-117); Anion Gap 10 (12-20); Blood Urea Nitrogen 16 mg/dL (9-16); Calcium 10.0 mg/dL (8.4-10.2); Carbon Dioxide 25 mmol/L (22-29); Chloride 107 mmol/L (96-108); Cholesterol 182 mg/dL (<200); Estimated Glomerular Filt Rate > 60; HDL Cholesterol 45 mg/dL (>40); Potassium 4.2 mmol/L (3.3-5.1); Sodium 138 mmol/L (135-145); Total Protein 8.1 g/dL (6.5-8.0); Triglycerides 117 mg/dL (<150)
[2025-07-28 16:41] LABS: Aspartate Amino Transferase 41 U/L (5-37)
--- OUTSIDE RECORDS SUMMARY | 2025-07-28 22:01 | XMS_ITS | Encounter Summary ---
Author Organization [employer] Address [address] [place] [phone] Care Team Providers Care Distance Learning Coordinator Name Role Phone Tasia Espinoza MD Primary Care Provider [phone] Reason for Visit * Reason Onset Date Comments Reschedule 05/30/2023 Encounter Details Date Type Department Care Team ([facility] st Contact Info) Description 05/30/2023 Telephone [facility] MED [facility] PEDS [address] [place], [place] [phone] Tasia Espinoza MD [address] [place] [address] Reschedule Social History Tobacco Use Types Packs/Day [...] Tc from mom requestign to r/s 05/22 F appointment. Please contact mom at [phone] documented in this encounter Plan of Treatment Not on file documented as of this encounter Visit Diagnoses Not on filedocumented in this encounter Additional Health Concerns Assessment Noted Time PHQ-9 Depression Total Score: 0 12/27/19 23 9:36 AM EDT documented as of this encounter Care Teams Distance Learning Coordinator Relationship Specialty Start Date End Date Tasia Espinoza MD [address] [place] [phone] PCP - General Family Medicine 09/09/18 documented as of this encounter
--- OUTSIDE RECORDS SUMMARY | 2025-07-28 22:01 | XMS_ITS | Encounter Summary ---
Author Organization [email or web address] Address [address] [place] [id number] Care Team Providers Care Zigzag Elastic Attacher Name Role Phone Tasia Espinoza MD Primary Care Provider [phone] Reason for Visit * Reason Onset Date Comments Appointment Request 12/11/2022 Encounter Details Date Type Department Care Team ([facility] st Contact Info) Description 12/11/2022 Telephone [facility] [address] [place], [place] [phone] Tasia Espinoza MD [address] [place] [address] Appointment Request Social History Tobacco Use Types [...] encounter Miscellaneous Notes * Telephone Encounter - Alisia Hilario - 12/11/2022 9:10 AM EDT Tc from mother requesting physical appt with provider. Anesthesiologist tried booking but no available appt was found. Please contact mother at [phone] documented in this encounter Plan of Treatment Not on file documented as of this encounter Visit Diagnoses Not on filedocumented in this encounter Care Teams Zigzag Elastic Attacher Relationship Specialty Start Date End Date Tasia Espinoza MD [address] [place] [phone] PCP - General Family Medicine 09/09/18 documented as of this encounter
--- OUTSIDE RECORDS SUMMARY | 2025-07-28 22:01 | XMS_ITS | Encounter Summary ---
Author Organization [employer] Address [address] [place] [address] [address] [place] [address] Care Team Providers Care Pediatric Geneticist Name Role Phone Tasia Espinoza MD Primary Care Provider [phone] Reason for Visit * Reason Onset Date Comments Nurse Triage 01/16/2024 Encounter Details Date Type Department Care Team ([facility] st Contact Info) Description 01/16/2024 Telephone [facility] MEDICINE [address] [place] [address] Tasia Espinoza MD [address] [place] [address] Nurse Triage Social History Tobacco Use Types [...] appt. Will submit request to provider in [facility] as PCP not working today. * [...] Time PHQ-9 Depression Total Score: 0 12/27/19 9:36 AM EDT documented as of this encounter Care Teams Pediatric Geneticist Relationship Specialty Start Date End Date Tasia Espinoza MD [address] [place] [address] PCP - General Family Medicine 09/09/18 documented as of this encounter
--- OUTSIDE RECORDS SUMMARY | 2025-07-28 22:01 | XMS_ITS | Encounter Summary ---
Author Organization [employer] Address [address] [place] [address] Care Team Providers Care Home Companion Name Role Phone Tasia Espinoza MD Primary Care Provider [phone] Reason for Visit * Reason Onset Date Comments Referral 03/18/2023 Legal Support Assistant Encounter Details Date Type Department Care Team ([facility] st Contact Info) Description 03/18/2023 Telephone [facility] [address] [place], [place] [phone] Tasia Espinoza MD [address] [place] [address] Referral (Legal Support Assistant ) Social History Tobacco Use Types Packs/Day [...] EDT Tc from patient requesting status for burr sander referral from 12/26/22. X Ray Developing Machine Operator see's note from01/07/23 stating Referral was sent [...] documented as of this encounter Care Teams Home Companion Relationship Specialty Start Date End Date Tasia Espinoza MD [address] [place] [phone] PCP - General Family Medicine 09/09/18 documented as of this encounter
--- OUTSIDE RECORDS SUMMARY | 2025-07-28 22:01 | XMS_ITS | Encounter Summary ---
Author Organization [employer] Address [address] [place] [address] 7 [place] [address] Care Team Providers Care Dam Attendant Name Role Phone Tasia Espinoza MD Primary Care Provider [phone] Encounter Details Date Type Department Care Team (Latest Contact Info) Description 07/28/2025 Travel Social History Tobacco Use Types Packs/Day [...] as of this encounter Plan of Treatment Not on file documented as of this encounter Visit Diagnoses Not on filedocumented in this encounter Additional Health Concerns Assessment Noted Time PHQ-9 Depression Total Score: 8 03/06/20 24 11:13 AM EDT documented as of this encounter Care Teams Dam Attendant Relationship Specialty Start Date End Date Tasia Espinoza MD [address] [place] [address] PCP - General Family Medicine 09/09/18 documented as of this encounter
--- OUTSIDE RECORDS SUMMARY | 2025-07-28 22:01 | XMS_ITS | Clinical Summary ---
Author Organization [employer] Address [address] [place] [address] 7 [place] [address] Care Team Providers Care Mobile Battery Technician Name Role Phone Tasia Espinoza MD Primary Care Provider [phone] Allergies No known active allergies Medications ketotifen (Zaditor) 0.025 % ophthalmic solution Administer [...] MOUTH DAILY 30 tablet 04/01/20 25 Active albuterol (2.5 MG/3ML) 0.083% nebulizer [...] daily 90 tablet 3 05/06/20 25 Active Advair Diskus 250-50 MCG/ACT aerosol powderIndicati ons:Mild asthma with allergic rhinitis with acute exacerbation, unspecified whether persistent Inhale 1 puff 2 times daily. Rinse mouth and throat after use 60 each 5 07/28/20 25 Active fluticasone (Flonase) 50 MCG/ACT nasal spray Administer 2 sprays into each nostril Once per day. Shake gently. Before first use, prime pump. After use, clean tip and replace cap. 16 g 3 07/28/20 25 2025 Active clindamycin (Cleocin T) 1 % lotion Apply topically 2 times daily. 60 mL 5 07/28/20 25 2025 Active Trulicity 3 MG/0.5ML solution pen-injector 12/02/19 23 2024 Discontinued(T herapy completed) Advair Diskus 250-50 MCG/ACT aerosol powderIndicati ons:Mild asthma with allergic rhinitis with acute exacerbation, unspecified whether persistent Inhale 1 puff 2 times daily. Rinse mouth and throat after use 60 each 3 05/06/20 25 2024 Discontinued(R eorder (will not trigger notification to Pharmacy)) fluticasone (Flonase) 50 MCG/ACT nasal spray Administer 2 sprays into each nostril Once per day. Shake gently. Before first use, prime pump. After use, clean tip and replace cap. 16 g 3 05/06/20 25 2024 Discontinued(R eorder (will not trigger [...] Mild persistent allergic asthma 06/30/2020 Morbid obesity ([facility]) 06/13/2020 Encounters Date Type Department Care Team Description 07/28/2025 10:30 AM EST Office Visit [facility] MED [facility]ED[facility] [address] [place] [address] Tasia Espinoza MD Encounter for immunization (Primary Dx); Preop examination; Dietary counseling; Exercise counseling; Routine adult health maintenance; Mild asthma with allergic rhinitis with acute exacerbation, unspecified whether persistent; Seasonal allergic rhinitis, unspecified trigger; Morbid obesity ([facility]) ([facility]) 07/28/2025 Travel 07/26/2025 Telephone [facility] [address] [place] [address] Tasia Espinoza MD Chart Prep 06/15/[address] [address] Tasia Espinoza MD Preop 06/03/[address] [address] Tasia Espinoza MD No Show 06/02/2025 Telephone [facility] [address] [place] [address] Tasia Espinoza MD Chart Prep 05/31/2025 [facility] Health Information Management [address] [place] [address] Bailey Rodriguez MD 05/28/2025 Travel 05/19/[address] [address] Tasia Espinoza MD No Show 05/17/2025 Telephone [facility] [address] [place] [address] Tasia Espinoza MD Chart Prep 05/12/2025 Patient Outreach [address] [address] Tasia Espinzoa MD Pre-visit Planning (Pre visit planning unable to LVM ) 05/06/2025 1:20 PM EDT Office Visit [facility] [address] [place] [phone] Kira Gomez, Mild persistent asthma with acute exacerbation (Primary Dx); Mild asthma with allergic rhinitis with acute exacerbation, unspecified whether persistent 05/06/2025 Travel from Last 3 Months Immunizations Immunization Administration [...] Pneumococcal Conjugate PCV 7 03/09/2005, 2004,2004,03/17 Tdap 07/28/2025,01/03/2015 Varicella 02/26/2008,03/09/2005 Social History Tobacco Use Types [...] 20 07/28/2025 10:37 AM EST Oxygen Saturation 97% 05/06/2025 1:04 PM EDT Inhaled Oxygen Concentration - - Weight 127 kg (281 lb) 07/28/2025 10:37 AM EST Height 190.8 cm (6' 3.13 ) 07/28/2025 10:[address] Body Mass Index 35 07/28/2025 10:37 AM EST Plan of Treatment Health Maintenance Due Date Last Done Comments HIV Screening 2004 Disability Screening 2004 Alcohol/Substance Use Screening 2016 Family Planning (PISQ) 12/31/2018 Meningococcal B Vaccine (1 of 2 - Standard) 2020 Hepatitis C Screening 12/31/2021 Pneumococcal Vaccine: Pediatrics (0 to 5 Years) and At-Risk Patients (6 to 49) Years (1 of 2 - PCV) 12/31/2022 03/09/2005, 2004, 2004, Additional history exists SDOH Screening 02/24/2025 02/25/2024 Depression Screening 03/06/2025 03/06/2024, 03/06/20 24 COVID-19 Vaccine (1 - season) 2025 Influenza Vaccine (#1) 2025 09/26/2012, 2007 Chlamydia and Gonorrhea Screening 07/28/2026 07/28/2025 Tobacco Screening 07/28/2026 07/28/2025 Lipid Panel 03/06/2029 07/28/2025, 02/08, 11/17/2021, Additional history exists DTaP/Tdap/Td Vaccines (8 - Td or Tdap) 07/28/2035 07/28/2025, 01/03/2015, 02/26/2008, Additional history exists Zoster Vaccines (1 of 2) 12/31/2053 RSV [...] Procedure Name Priority Date/Time Associated Diagnosis Comments LIPID PANEL, STANDARD Routine 07/28/2025 11:12 AM [...] immunization Preop examination Routine adult health maintenance BASIC METABOLIC PANEL, FASTING Routine 07/28/2025 11:12 AM EST Dietary counseling Exercise counseling Encounter for immunization Preop examination Routine adult health maintenance CHLAMYDIA/TRICHOMONAS /NEISSERIA GONORRHOEAE, PCR, URINE Routine 07/28/2025 10:58 AM EST Dietary counseling Exercise counseling Encounter for immunization Preop examination Routine adult health maintenance XR CHEST 2 VIEWS STAT 05/06/2025 1:04 PM EDT Mild persistent asthma with acute exacerbation XR CHEST 2 VIEWS Routine 04/28/2025 11:3 3 AM EDT from Last 3 Months Results * (ABNORMAL) Basic Metabolic Panel, Fasting (07/28/2025 11:12 AM EST) Sodium 138 135 - 145 mmol/L [facility] Potassium 4.2 3.3 - 5.1 mmol/L [facility] Chloride 107 96 - 108 mmol/L [facility] Carbon Dioxide 25 22 - 29 mmol/L [facility] Anion Gap 10(L) 12 - 20 [facility] Urea Nitrogen (BUN) 16 9 - 16 mg/dL [facility] Creatinine, Serum 0.97 0.5 - 1.4 mg/dL [facility] Estimated Glomerular Filt Rate >60 [facility] Comment:Chronic Kidney Disea se: Estimated GFR < 60 mL/min/1.60i1Uwyfhn Kidney Disease: Estimated GFR < 15 mL/min/1.73m2 Glucose Fasting 84 60 - 99 mg/dL [facility] Calcium 10.0 8.4 - 10.2 mg/dL [facility] Blood Venous blood specimen / Unknown 07/28/2025 11:12 AM EST 07/28/2025 2:06 PM EST Tasia Espinoza MD LAB BLOOD ORDERABLES Final Re sult Performing Organization Address [facility] Co de Phone Number [facility] [address] [place] [phone] * TSH W/Reflex to FT4 (07/28/2025 11:12 AM EST) Pathologist [facility] TSH reflex Free T4 1.24 0.32 - 4.0 uIU/mL [facility] Blood Venous blood specimen / Unknown 07/28/2025 11:12 AM EST 07/28/2025 2:06 PM EST Tasia Espinoza MD LAB BLOOD ORDERABLES Final Re sult Performing Organization Address [facility] Co de Phone Number [facility] [address] [place] [phone] * (ABNORMAL) CBC auto differential (07/28/2025 11:12 AM EST) White Blood Count 6.0 4.8 - 10.8 X10*3/uL [facility] Red Blood Count 5.45 4.60 - 5.80 X10*6/uL [facility] Hemoglobin 15.7 14.0 - 18.0 g/dl [facility] Hematocrit 47.6 42.0 - 52.0 % [facility] Mean Corpuscular Volume 87.3 80.0 - 98.0 fL [facility] Mean Corpuscular Hemoglobin 28.8 27.0 - 33.0 pg [facility] Mean Corpuscular HGB Conc 33.0 31.0 - 36.0 g/dl [facility] Red Cell Distribution Width 12.3 11.0 - 16.0 % [facility] Platelet Count 360 160 - 400 X10*3/uL [facility] Mean Platelet Volume 9.8 9.4 - 12.4 fL [facility] Neutrophils Percent Auto 49.0 45 - 73 % [facility] Imm Gran Pct Auto 0.7(H) 0.0 - 0.4 % [facility] Lymphocytes Percent Auto 37.8 20 - 40 % [facility] Monocytes Percent Auto 7.9 2 - 11 % [facility] Eosinophils Percent Auto 3.3 0 - 4 % [facility] Basophils Percent Auto 1.3 0 - 2 % [facility] NRBC Pct Auto 0.0 0.0 - 0.2 /100WBC [facility] Neutrophils Absolute Auto 2.9 2.0 - 8.3 x10*3/uL [facility] Imm Gran Abs Auto 0.04(H) 0.00 - 0.03 X10*3/uL [facility] Lymphocytes Absolute Auto 2.3 1.2 - 4.9 X10*3/uL [facility] Monocytes Absolute Auto 0.5 0.1 - 1.2 X10*3/uL [facility] Eosinophils Absolute Auto 0.2 0.0 - 0.4 X10*3/uL [facility] Basophils Absolute Auto 0.1 0.0 - 0.2 X10*3/uL [facility] NRBC Abs Auto 0.000 0.0 - 0.012 X10*3/uL [facility] Blood Venous blood specimen / Unknown 07/28/2025 11:12 AM EST 07/28/2025 2:06 PM EST us Tasia Espinoza MD LAB BLOOD ORDERABLES Final Re sult [facility] [address] [place], [place] [phone] * Hemoglobin A1c (07/28/2025 11:12 AM EST) Hemoglobin A1c 5.0 <6.0 % [facility] Comment:Hemoglobin A1C Refer ence Range Adults: 4.8 - 6.0 % Non diabetic: < 6.0 % Goal: < 7.0 %Additional Action Suggested: > 8.0 %Note: Hemoglobin A1c results are invalid for patients with abnormal amounts of HbF. Blood transfusions may impact the HbA1c concentration in the patient sample. Estimated Average Glucose 97 mg/dL [facility] Comment:eAG = Estimated ave rage glucose which is %A1C expressed asaverage glucose, using the formula of the [id number]-[id number] Glucose study (ADAG), Diabetes Care, Vol.31,#8,Apr. 2007 Blood Venous blood specimen / Unknown 07/28/2025 11:12 AM EST 07/28/2025 2:06 PM EST us Tasia Espinoza MD LAB BLOOD ORDERABLES Final Re sult [facility] [address] [place] [address] [phone] * (ABNORMAL) Hepatic Function Panel (07/28/2025 11:12 AM EST) Bilirubin, Total 0.6 0.0 - 1.0 mg/dL [facility] Bilirubin, Direct 0.2 0.0 - 0.5 mg/dL [facility] Aspartate Amino Transferase 41(H) 5 - 37 U/L [facility] Alanine Aminotransferase 37 0 - 40 U/L [facility] Total Protein 8.1(H) 6.5 - 8.0 g/dL [facility] Albumin Level 5.2(H) 3.5 - 5.0 g/dL [facility] Alkaline Phosphatase 68 39 - 117 U/L [facility] Blood Venous blood specimen / Unknown 07/28/2025 11:12 AM EST 07/28/2025 2:06 PM EST Tasia Espinoza MD LAB BLOOD ORDERABLES Final Re sult Performing Organization Address [facility] Co de Phone Number [facility] [address] [place] [address] [phone] * (ABNORMAL) Lipid Panel, Standard (07/28/2025 11:12 AM EST) Triglycerides 117 <150 mg/dL [facility] Comment:Desirable Triglyceri de: less than 150 mg/dLBorderline High Triglyceride 150-199 mg/dLHigh Triglyceride: 200-499 mg/dLVery High Triglyceride: greater than or equal to 5OO mg/dL Cholesterol 182 <200 mg/dL [facility] Comment:Desirable Cholestero l: less than 200 mg/dLBorderline High Cholesterol: 200-239 mg/dLHigh Cholesterol: greater than 239 mg/dL LDL Cholesterol Calculated 114(H) <100 mg/dL [facility] Comment:Desirable LDL: less than 100 mg/dLNear Optimal/Above Optimal LDL: 110- 129 mg/dLBorderline High LDL: 130-159 mg/dLHigh LDL: 160-189 mg/dLVery High LDL: greater than or equal to 190 mg/dL HDL Cholesterol 45 >40 mg/dL [facility] Comment:Desirable HDL: great er than 40 mg/dL Note: This HDL assay may give artificially low results in patients with liver disease. Blood Venous blood specimen / Unknown 07/28/2025 11:12 AM EST 07/28/2025 2:06 PM EST Tasia Espinoza MD LAB BLOOD ORDERABLES Final Re sult Performing Organization Address [facility]/ZIP Co de Phone Number [facility] [address] [place] [address] [phone] * Chlamydia/N. Gonorrhoeae, PCR, Urine (07/28/2025 10:58 AM EST) CT PCR, Urine NOT DETECTED Not Detect. [facility] Comment:A not detected test result [...] NG PCR, Urine NOT DETECTED Not Detect. [facility] Comment:A not detected test result [...] MD LAB URINE ORDERABLES Final Re sult [facility] [address] [place], [place] [phone] * XR Chest 2 Views (05/06/2025 1:04 PM EDT) Only the most recent of2 resultswithin the time period is included. Anatomical Region Laterality Modality Chest Radiographic Lyn ging 05/06/2025 1:0 4 PM EDT Narrative 05/06/2025 2:01 PM EDT [facility] [address] [place] [address] XRay Report Signed Patient: Auige Marquez MR#: [id number] 1 : 2005 Acct:[id number] Age/Sex: 20 / M ADM Date: 05/06/25 Loc: [facility] Attending Dr: Kira Gomez DO Ordering Physician: Kira Gomez DO Date of Service: 05/06/25 Procedure(s): XR chest 2V Accession Number(s): [id number] cc: Kira Gomez DO EXAMINATION: XR CHEST [...] Gonzalo Courtney MD 05/06/2025 01:58 PM EDT Dictated By: Gonzalo Courtney MD Signed By: <Electronically signed by Gonzalo Courtney MD in OV> 05/06/25 1358 DD/ 1304 TD/TT: 05/06/25 1315 Assistant Producer: Procedure Note Donotuseinterpreter, Image - 05/06/[address] [address] XRay Report Signed Patient: Augie MarquezMR#: [id number] 1 : 2005Acct:[id number] Age/Sex: 20 / MADM Date: 05/06/25 Loc: [facility] Attending Dr: Kira Gomez DO Ordering Physician: Kira Gomez DO Date of Service: 05/06/25 Procedure(s): XR chest 2V Accession Number(s): [id number] cc: Kria Gomez DO EXAMINATION: XR CHEST 2 VIEWS [...] 05/06/25 1358 DD/ 1304 TD/TT: 05/06/25 1315 Assistant Producer: Kira Gomez DO IMG XR PROCEDURES Final Resu lt from Last 3 Months Insurance C3 Care Teams Mobile Battery Technician Relationship Specialty Start Date End Date Tasia Espinzoa MD [address] [place] [phone] PCP - General Family Medicine 09/09/18
--- OUTSIDE RECORDS SUMMARY | 2025-07-28 22:02 | XMS_ITS | Clinical Summary ---
Author Organization [facility] Address [address] [place] [address] Phone Care Team Providers Care Convalescent Sitter Name Role Phone Tasia Espinoza MD Primary Care Provider [phone] Allergies No known active allergies Medications albuterol 2.5 mg /3 mL (0.083 %) nebulizer solution Take 3 mL (2.5 mg total) by nebulization every 4 (four) hours if needed for wheezing or shortness of breath. Active Encounters Date Type Department Care Team Description 05/29/2025 4:39 AM EDT - 05/29/2025 9:47 AM EDT Emergency [facility] Emergency [address] [place] [address] Nicol Palma MD Wyman, Tim, MD Mild asthma with exacerbation, unspecified whether persistent (Primary Dx); Viral URI Discharge Disposition: Home or Self Care from Last 3 Months Social History Tobacco Use Types Packs/Day Years Used Date Smoking Tobacco: Never Assessed Sex and Gender Information Value Date Recorded Sex Assigned at Not on file Legal Sex Male 4:33 AM EST Gender Identity Not on file Sexual Orientation Not on file Obstetrics History Last Filed Vital Signs Vital Sign Reading Time Taken Comments Blood Pressure 129/66 05/29/2025 5:46 AM EDT Pulse 105 05/29/2025 5:46 AM EDT Temperature 36.6 C (97.9 F) 05/29/2025 5:46 AM EDT Respiratory Rate 24 05/29/2025 5:46 AM EDT Oxygen Saturation 96% 05/29/2025 5:46 AM EDT Inhaled Oxygen Concentration - - Weight 120 kg (265 lb) 05/29/2025 4:26 AM EDT Height 193 cm (6' 4 ) 05/29/2025 4:26 AM EDT Body Mass Index 32.26 05/29/2025 4:26 AM EDT Plan of Treatment Health Maintenance Due Date Last Done Comments Pneumococcal Vaccine: Pediatrics (0 to 5 Years) and At-Risk Patients (6 to 49 Years) (1 of 1 - PPSV23, PCV20, or PCV21) 12/31/2009 03/09/2005, 2004, 2004, Additional history exists Meningococcal B Vaccine (1 of 2 - Standard) 2020 HIV Screening 08/12/2022 Hepatitis C Screening 08/12/2022 Social Influencers of Health Screening 08/12/2022 Depression Screening 09/09/2024 DTaP,Tdap,and Td Vaccines (7 - Td or Tdap) 01/03/2025 01/03/2015, 02/26/2008, 03/09/2005, Additional history exists Annual Well Child Visit (3-21 years old) 03/06/2025 03/06/2024 COVID-19 Vaccine ( - season) 2025 Influenza Vaccine (#1) 2025 09/26/2012, 2007 Cholesterol Screening (Lipid Panel) 03/06/2029 03/06/2024 RSV Immunization Adult Patients (1 - 1-dose 75+ series) 12/31/2078 HIB Vaccines Completed 03/09/2005, 07/11, 2004, Additional history exists Hepatitis B Vaccines Completed 03/09/2005, 2004, 2004 IPV Vaccines Completed 02/26/2008, 07/11, 2004, Additional history exists MMR Vaccines Completed 02/26/2008, 03/09/2005 Varicella Vaccines Completed 02/26/2008, 03/09/2005 HPV Vaccines Completed 12/21/2016, 12/09, 08/26/2013 Hepatitis A Vaccines Completed 07/28/2019, 12/22/19 Meningococcal ACWY Vaccine Completed 11/08/2020, RSV Immunization Patients Under 20 months Aged Out No longer eligible based on patient's age to complete this topic Procedures Procedure Name Priority Date/Time Associated Diagnosis Comments XR CHEST 2 VIEWS STAT 05/29/2025 7:30 AM EDT RESPIRATORY VIRUS PANEL MOLECULAR STUDY STAT 05/29/2025 7:09 AM EDT from Last 3 Months Results * XR Chest 2 Views (05/29/2025 7:30 AM EDT) Anatomical Region Laterality Modality Body Radiographic Lyn ging 05/29/2025 7:40 AM EDT Impressions 05/29/2025 7:41 AM EDT No acute pneumonia or edema. Thickening of the central markings is nonspecific -------- FINAL REPORT -------- Dictated By: Salas Granger Dictated Date: 05/29/2025 07:40 ET Assigned Physician: Salas Granger Reviewed and Electronically Signed By: Salas Granger Signed Date: 05/29/2025 07:41 ET Workstation ID: [id number] Transcribed By: Self Edit Transcribed Date: 05/29/2025 07:40 ET Narrative 05/29/2025 7:41 AM EDT EXAMINATION: CHEST CLINICAL INFORMATION: Cough, wheezing. Dyspnea x 3 days COMPARISON: Frontal view 03/20/16 TECHNIQUE: 2 views of the chest FINDINGS: The cardiac size is within normal limits. No mediastinal or hilar mass. The central markings are top normal which can be seen with reactive airways disease or chronic inflammation. There is no focal pneumonia. The visualized pleural margins are within normal limits. No suspicious focal bony lesion. Procedure Note Salas Granger MD - 05/29/2025 EXAMINATION: CHEST CLINICAL INFORMATION: Cough, wheezing. Dyspnea x 3 days COMPARISON: Frontal view 03/20/16 TECHNIQUE: 2 views of the chest FINDINGS: The cardiac size is within normal limits. No mediastinal or hilar mass.The central markings are top normal which can be seen with reactiveairways disease or chronic inflammation. There is no focal pneumonia. Thevisualized pleural margins are within normal limits. No suspicious focal bony lesion. IMPRESSION: No acute pneumonia or edema. Thickening of the central markings isnonspecific -------- FINAL REPORT -------- Dictated By: Salas Granger Dictated Date: 05/29/2025 07:40 ET Assigned Physician: Salas Granger Reviewed and Electronically Signed By: Salas Granger Signed Date: 05/29/2025 07:41 ET Workstation ID: [id number] Transcribed By: Self Edit Transcribed Date: 05/29/2025 07:40 ET Dalton Tate MD IMG XR PROCEDURES Final Result * (ABNORMAL) Respiratory virus panel molecular study (05/29/2025 7:09 AM EDT) Adenovirus Detection by PCR Not Detected Not Detected LAB MICROBIOLOGY METHOD 05/29/2025 8:57 AM EDT [facility] Influenza A PCR Not Detected Not Detected LAB MICROBIOLOGY METHOD 05/29/2025 8:57 AM EDT [facility] Influenza B PCR Not Detected Not Detected LAB MICROBIOLOGY METHOD 05/29/2025 8:57 AM EDT [facility] Coronavirus 229E Not Detected Not Detected LAB MICROBIOLOGY METHOD 05/29/2025 8:57 AM EDT [facility] Coronavirus HKU1 Not Detected Not Detected LAB MICROBIOLOGY METHOD 05/29/2025 8:57 AM EDT [facility] Coronavirus OC43 Not Detected Not Detected LAB MICROBIOLOGY METHOD 05/29/2025 8:57 AM EDT [facility] Coronavirus NL63 Not Detected Not Detected LAB MICROBIOLOGY METHOD 05/29/2025 8:57 AM EDT [facility] Parainfluenza Virus 1 Not Detected Not Detected LAB MICROBIOLOGY METHOD 05/29/2025 8:57 AM EDT [facility] Parainfluenza Virus 2 Not Detected Not Detected LAB MICROBIOLOGY METHOD 05/29/2025 8:57 AM EDT [facility] Parainfluenza Virus 3 Not Detected Not Detected LAB MICROBIOLOGY METHOD 05/29/2025 8:57 AM EDT [facility] Parainfluenza Virus 4 Not Detected Not Detected LAB MICROBIOLOGY METHOD 05/29/2025 8:57 AM EDT [facility] RSV PCR Not Detected Not Detected LAB MICROBIOLOGY METHOD 05/29/2025 8:57 AM EDT [facility] Human Metapneumovirus A and B Not Detected Not Detected LAB MICROBIOLOGY METHOD 05/29/2025 8:57 AM EDT [facility] Rhinovirus/Entero virus Detected(A ) Not Detected LAB MICROBIOLOGY METHOD 05/29/2025 8:57 AM EDT [facility] Bordetella pertussis Not Detected Not Detected LAB MICROBIOLOGY METHOD 05/29/2025 8:57 AM EDT [facility] Bordetella parapertussis Not Detected Not Detected LAB MICROBIOLOGY METHOD 05/29/2025 8:57 AM EDT [facility] Mycoplasma pneumo by PCR Not Detected Not Detected LAB MICROBIOLOGY METHOD 05/29/2025 8:57 AM EDT [facility] Chlamydia pneumoniae Not Detected Not Detected LAB MICROBIOLOGY METHOD 05/29/2025 8:57 AM EDT [facility] SARS COV-2 Not Detected Not Detected LAB MICROBIOLOGY METHOD 05/29/2025 8:57 AM T [facility] Swab Both anterior nares / Unknown Non-blood Collection / Unknown 05/29/2025 7:09 AM EDT 05/29/2025 7:[address] [facility] - 05/29/2025 8:57 AM EDT Testing was performed using the [employer] Respiratory Pathogen PCR Assay. All results must be correlated with the clinical findings. Results should not be used as the sole basis for diagnosis. False Negative results may occur from the presence of sequence variants in the region targeted by the assay or the presence of inhibitors. Results may be affected by concurrent antiviral/antimicrobial therapy or levels of organisms that are below the limit of detection. Dalton Tate MD LAB MICROBIOLOGY - GENERAL ORDER JAMILAH Final Result [facility] [address] [place] [address], from Last 3 Months Insurance MEDICAID - [place] Care Teams Convalescent Sitter Relationship Specialty Start Date End Date Tasia Espinoza MD [address] [place] [phone] PCP - General Internal Medicine 05/29/25
--- OUTSIDE RECORDS SUMMARY | 2025-07-28 22:02 | XMS_ITS | Encounter Summary ---
Author Organization [employer] Address [address] [place] [address] [address] [place] [address] Care Team Providers Care Chemical Analytical Sampler Name Role Phone Tasia Espinoza MD Primary Care Provider [phone] Encounter Details Date Type Department Care Team (Late st Contact Info) Description 05/31/2025 Orders Only [facility] [address] [place] [address] Provider, MD Bailey Social History Tobacco Use Types Packs/Day Years [...] on file documented as of this encounter Procedures Procedure Name Priority Date/Time Associated Diagnosis Comments XR CHEST 2 VIEWS Routine 04/28/2025 11:33 AM EDT documented in this encounter Results * XR Chest 2 Views (04/28/2025 11:33 AM EDT) Anatomical Region Laterality Modality Chest Radiographic Lyn ging Historical Provider MD CALABRESE XR PROCEDURES Final R esult documented in this encounter Visit Diagnoses Not on filedocumented in this encounter Additional Health Concerns Assessment Noted Time PHQ-9 Depression Total Score: 8 03/06/20 24 11:13 AM EDT documented as of this encounter Care Teams Chemical Analytical Sampler Relationship Specialty Start Date End Date Tasia Espinoza MD [address] [place] [address] PCP - General Family Medicine 09/09/18 documented as of this encounter
--- OUTSIDE RECORDS SUMMARY | 2025-07-28 22:02 | XMS_ITS | Encounter Summary ---
Author Organization [employer] Address [address] [place] [id number] Care Team Providers Care Research Nutritionist Name Role Phone Tasia Espinoza MD Primary Care Provider [phone] Reason for Visit * Reason Onset Date Comments Chart Prep 07/26/2025 Encounter Details Date Type Department Care Team ([facility] st Contact Info) Description 07/26/2025 Telephone [facility] [address] [place], [place] [phone] Tasia Espinoza MD [address] [place] [address] Chart Prep Social History Tobacco Use Types Packs/Day Years [...] encounter Miscellaneous Notes * Telephone Encounter - Ashley Wilson [place] - 07/26/2025 11:21 AM EST Chart Prep Labs: not applicable Images: not applicable Referrals: not applicable Vaccines due: Covid, Flu, and Tdap Screenings: STI screening and PISQ Overdue care gaps: SBIRT, SDOH, PHQ-9, Oral health screening, Disability screen, and Tobacco documented in this encounter Plan of Treatment Not on file documented as of this encounter Visit Diagnoses Not on filedocumented in this encounter Additional Health Concerns Assessment Noted Time PHQ-9 Depression Total Score: 8 03/06/20 24 11:13 AM EDT documented as of this encounter Care Teams Research Nutritionist Relationship Specialty Start Date End Date Tasia Espinoza MD [address] [place] [address] [place] [id number] PCP - General Family Medicine 09/09/18 documented as of this encounter
[2025-07-29 08:55] LABS: HIV Num 1 0.06 S/CO (0.00-0.99); ~HepC Num1 0.11 S/CO (0.00-0.79); ~Hepatitis C Antibody Nonreactive (Nonreactive)
== END 2025-07-28 11:10 | disposition home or self-care (01) ==
LOC: HO.CHCLDS 11:09
PROVIDERS: Visit Provider Pediatrics
DX: Z00.00 Encounter for general adult medical examination without abnormal findings (principal); Z23 Encounter for immunization; Z71.3 Dietary counseling and surveillance; Z71.82 Exercise counseling; Z13.1 Encounter for screening for diabetes mellitus; Z11.4 Encounter for screening for human immunodeficiency virus [HIV]; Z20.2 Contact with and (suspected) exposure to infections with a predominantly sexual mode of transmission; Z13.6 Encounter for screening for cardiovascular disorders; Z01.812 Encounter for preprocedural laboratory examination
CPT/HCPCS: 80048; 80061; 80076; 83036; 84443; 85025; 86803; 87389; 87491; 87591